=== PATIENT | male | born 1990 | race Caucasian/White ===

== ENCOUNTER 2019-05-07 13:57 | Emergency (ER) | payer BC ==
[~2019-05-07] VITALS: Ht 180.3 cm; Wt 90.7 kg
[2019-05-07] MEDS ORDERED: Tetanus/Diptheria/Pertussis IM ONE (14:30)
[2019-05-07] MEDS ORDERED: Neosporin Oint Ud Pkt TOPIC ONE ×3 (14:30→15:30)
--- NOTE | 2019-05-07 14:31 | NUR ---
ED Nurse Note:pt. fell in shower today and has skin abrasion on right leg, no bleeding at this time
--- NOTE | 2019-05-07 15:02 | Diagnostic Imaging Report ---
Indication: Fall, pain, trauma Technique: 2 views of the left tibia and fibula Comparison: none Findings: Gas is seen within the proximal anteromedial soft tissues. No underlying bony destruction. No acute fractures. No dislocations. No radiopaque foreign body demonstrated Impression: Gas within soft tissues, likely reflecting penetrating trauma. If no history of such, then the possibility of infection with a gas-forming organism should be considered No acute bony trauma or radiopaque foreign body demonstrated
--- NOTE | 2019-05-07 15:23 | Emergency Room Report ---
History of Present Illness General Chief Complaint: Lower Extremity Injury Source: Patient Present Illness HPI 29-year-old male with no symptom past medical history here complaining of an abrasion in the right lower extremity that happened today after he slipped and hit his right lower extremity to the glass door that opens and closed the bathtub. Patient is rating pain 7 out of 10 without radiation. Has not taken medication for pain. Denies tingling numbness. Reports minimal bleeding. Denies pain radiation, tingling and numbness. Denies chest pain, palpitation branches, abdominal pain nausea vomiting. Bone scan of the right lower extremity gas-forming lesions were noted for do not match the timing of the incident. Patient had the injury happened a couple hours prior to arrival. Patient also had a fall 6 months ago with a minor scratch however denies any fever and chills and pain in the affected area. Possibility of cyst discussed with the patient. Patient to follow-up with healthcare specialist. Also return the emergency room for follow-up. Denies any penetrating trauma. Allergies: Coded Allergies: No Known Allergies (Unverified , 05/07/19) Patient History Past Medical History: see triage record Past Surgical History: unable to obtain Pertinent Family History: none Immunizations: UTD Reviewed Nursing Documentation: PMH: Agreed; PSxH: Agreed Nursing Documentation-PMH Past Medical History: No Stated History Review of Systems All Other Systems: negative except mentioned in HPI Physical Exam Vital Signs Date Time Temp Pulse Resp B/P (MAP) Pulse Ox O2 Delivery O2 Flow Rate FiO2 05/07/19 14:05 98.4 86 18 167/94 (118) 98 Room Air Sp02 EP Interpretation: reviewed, normal General Appearance: no apparent distress, alert, GCS 15, non-toxic Head: normocephalic, atraumatic Eyes: bilateral eye normal inspection, bilateral eye PERRL ENT: hearing grossly normal, normal pharynx, no angioedema, normal voice Neck: full range of motion, supple/symm/no masses Respiratory: chest non-tender, lungs clear, normal breath sounds, speaking full sentences Cardiovascular #1: regular rate, rhythm, no edema, no murmur, normal capillary refill Cardiovascular #2: 2+ dorsalis pedis (R), 2+ dorsalis pedis (L) Gastrointestinal: normal inspection, non tender, soft Musculoskeletal: back normal, gait/station normal, normal range of motion, non- tender, no calf tenderness, other - Abrasion right proximal tib-fib Neurologic: alert, oriented x3, responsive, motor strength/tone normal, sensory intact, speech normal Psychiatric: judgement/insight normal, memory normal, mood/affect normal, no suicidal/homicidal ideation Skin: abrasion - Noninfected abrasion right proximal tib-fib Lymphatic: no adenopathy Medical Decision Making PA Attestation All my diagnosis and treatment plans were reviewed ad discussed with my supervising physician Dr. Blackmon Diagnostic Impression: Primary Impression: Abrasion of right leg ER Course 29-year-old male with no symptom past medical history here complaining of an abrasion in the right lower extremity that happened today after he slipped and hit his right lower extremity to the glass door that opens and closed the bathtub. Patient is rating pain 7 out of 10 without radiation. Has not taken medication for pain. Denies tingling numbness. Reports minimal bleeding. Denies pain radiation, tingling and numbness. Denies chest pain, palpitation branches, abdominal pain nausea vomiting. Bone scan of the right lower extremity gas-forming lesions were noted for do not match the timing of the incident. Patient had the injury happened a couple hours prior to arrival. Patient also had a fall 6 months ago with a minor scratch however denies any fever and chills and pain in the affected area. Possibility of cyst discussed with the patient. Patient to follow-up with healthcare specialist. Also return the emergency room for follow-up. Denies any penetrating trauma. Ddx considered but are not limited to: Infected aberration, superficial abrasion noninfected, laceration, cellulitis Vital signs: are WNL, pt. is afebrile H&PE are most consistent with: None Abrasion right proximal tib-fib ORders: Bactroban, ibuprofen ED INTERVENTIONS: Wound clean and dressed, x-ray DISCHARGE: At this time pt. is stable for d/c to home. Will provide printed patient care instructions, and any necessary prescriptions. Care plan and follow up instructions have been discussed with the patient prior to discharge. Patient to follow-up with [facility] emergency room for follow-up tomorrow. If worsening symptoms return to emergency room sooner. Also Dr. Blackmon examined the patient. Due to unlikelihood of correlation of her recent trauma and the possibility of gas-forming bacteria shown on the x-ray to be evaluated further outpatient. Patient agrees with the above course of treatment. Other X-Ray Diagnostic Results Other X-Ray Diagnostic Results : X-Ray ordered: Right tib-fib # of Views/Limited Vs Complete: 2 View Indication: Pain EP Interpretation: Yes GIUSEPPE Xray: Interpretation reviewed, by supervising MD, and agrees with findings. Interpretation: no dislocation, no soft tissue swelling, no fractures, other - Possible gas forming bacteria Impression: No acute disease Electronically Signed by: James Bhat PA-C Last Vital Signs Date Time Temp Pulse Resp B/P (MAP) Pulse Ox O2 Delivery O2 Flow Rate FiO2 05/07/19 14:05 98.4 86 18 167/94 (118) 98 Room Air Disposition: HOME, SELF-CARE Condition: Stable Scripts Ibuprofen* (MOTRIN*) 600 Mg Tablet 600 MG ORAL Q8H PRN for For Pain, #30 TAB 0 Refills Prov: James Rendon 05/07/19 Mupirocin (MUPIROCIN) 15 Gm Cream..g. 1 APPLIC TOPIC THREE TIMES A DAY, #15 GM Prov: James Rendon 05/07/19 Referrals: NOT CHOSEN IPA/,REFERRING (PCP) Patient Instructions: Abrasion, [id number] Additional Instructions: Take medication as directed follow-up with your primary care provider for referral to healthcare specialist. If worsening pain and erythema in your leg return to the emergency room. Return tomorrow for follow-up. James Rendon May 07, 2019 15:23
[2019-05-07] MEDS ORDERED: MUPIROCIN15 GM TOPIC (15:27)
[2019-05-07] MEDS ORDERED: IBUPROFEN600 MG ORAL (15:27)
--- NOTE | 2019-05-07 15:30 | NUR ---
ER DISCHARGE NOTE: Patient is cleared to be discharged per ERMD, pt is aox4, on room air, with stable vital signs. pt was given dc and prescription instructions, pt was able to verbalize understanding, pt is able to ambulate with steady gait. pt took all belongings.
[2019-05-07 15:40] VITALS: BP 147/83
== END 2019-05-07 15:42 | disposition home or self-care (01) ==
LOC: EMR 14:23
DX: S80.811A Abrasion, right lower leg, initial encounter (principal); Z23 Encounter for immunization; W01.110A Fall on same level from slipping, tripping and stumbling with subsequent striking against sharp glass, initial encounter; Y92.002 Bathroom of unspecified non-institutional (private) residence as the place of occurrence of the external cause
CPT/HCPCS: 90471; 90715; 99283